=== PATIENT | male | born 1970 | race Caucasian/White ===

== ENCOUNTER 2019-08-08 17:43 | Inpatient (IN) | payer OTHER ==
--- NOTE | 2019-08-08 19:06 | ED ---
Psychiatric Complaint - HPI Summary HPI Summary: 48 y/o male presented to [facility] for psychiatric complaint related to a psychotic break from 20y ago. His past psychiatrist, Dr. Manjarrez, retired 1y ago. He now sees Dr. Caro. There is no official diagnosis for the pt, but psychiatrists who have seen him suspect bipolar disorder or psychosis. His states he has been manic since 2018, and that his personality has changed. He has become more verbally defiant. Pt notes hx of tinnitus and fhx of similar psychiatric issues in his mother. Pt was cleared for MHE at 1852. - History Of Current Complaint Chief Complaint: EDMentalHealth Time Seen by Provider: 08/08/19 18:28 Hx Obtained From: Patient Onset/Duration: Still Present Character: Manic Aggravating Factor(s): Nothing Alleviating Factor(s): Nothing Associated Signs And Symptoms: Positive: Hostile - combative, only verbally Related History: Positive For: Prior Psychiatric Issues - psychotic break 20y ago - Allergies/Home Medications Allergies/Adverse Reactions: Allergies Allergy/AdvReac Type Severity Reaction Status Date / Time budesonide [From Symbicort] Allergy Intermediate Agitation Verified 08/08/19 17: 48 formoterol [From Symbicort] Allergy Intermediate Agitation Verified 08/08/19 17: 48 Penicillins Allergy Unknown Rash Verified 08/08/19 17:48 PMH/Surg Hx/FS Hx/Imm Hx Endocrine/Hematology History: Denies: Hx Diabetes Cardiovascular History: Denies: Hx Pacemaker/ICD History: Denies: Hx Dialysis, Hx Renal Disease Sensory History: Denies: Hx Hearing Aid Psychiatric History: Denies: Hx Panic Disorder - Surgical History Surgery Procedure, Year, and Place: DENIES Infectious Disease History: No Infectious Disease History: Denies: Traveled Outside the [place] in Last 30 Days - Family History Known Family History: Positive: Other - similar psychiatric issues in mother - Social History Alcohol Use: Rare Substance Use Type: Reports: None Smoking Status (MU): Never Smoked Tobacco Review of Systems Negative: Fever - vitals show temp at 97.4F Positive: Other - manic All Other Systems Reviewed And Are Negative: Yes Physical Exam - Summary Physical Exam Summary: General: Well appearing, no distress HEENT: PERRL Cardiovascular: Skin is well perfused Pulmonary: No respiratory distress, no tachypnea Abdomen: Non-distended Skin: Warm, pink, dry MSK: No edema Psych: tangential, hyperverbal, poor eye contact Neuro: A&Ox3 Triage Information Reviewed: Yes Vital Signs On Initial Exam: Initial Vitals Temp Pulse Resp BP Pulse Ox 97.4 F 77 19 174/94 100 08/08/19 17:43 08/08/19 17:43 08/08/19 17:43 08/08/19 17:43 08/08/19 17:43 Vital Signs Reviewed: Yes Procedures - Sedation Patient Received Moderate/Deep Sedation with Procedure: No Diagnostics - Vital Signs Vital Signs Temp Pulse Resp BP Pulse Ox 08/08/19 17:47 97.8 F 77 19 174/94 99 08/08/19 17:43 97.4 F 77 19 174/94 100 - Laboratory Result Diagrams: 08/08/19 21:07 08/08/19 21:07 Lab Statement: Any lab studies that have been ordered have been reviewed, and results considered in the medical decision making process. Course/Dx - Course Course Of Treatment: 48 y/o male w hx psychosis p/w manic behavior and paranoia. - VSS NAD. Patient without medical complaints. Patient initially declining labs. Placed in gown on constant observation. - Differential Dx/Clinical Impression Provider Diagnosis: Unspecified psychosis - Physician Notifications Discussed Care Of Patient With: Murphy Samson Time Discussed With Above Provider: 21:31 Instructed by Provider To: Other - After MHE, Dr. Samson decided to admit the pt. Discharge ED - Sign-Out/Discharge Documenting (check all that apply): Patient Departure - admit - Discharge Plan Condition: Stable Disposition: ADMITTED TO [facility] Referrals: Cristine Coburn MD [Primary Care Provider] - - Billing Disposition and Condition Condition: STABLE Disposition: Admitted to [facility] - Attestation Statements Document Initiated by Scribe: Yes Documenting Scribe: Yo Ball Provider For Whom Dave is Documenting (Include Credential): Saloni Lima Scribe Attestation: Yo Fernandez, scribed for Saloni Lima on 08/08/19 at 2253. Scribe Documentation Reviewed: Yes Provider Attestation: The documentation as recorded by the Yo mars accurately reflects the service I personally performed and the decisions made by me, Saloni Lima Status of Scribe Document: Viewed
[2019-08-08 20:58] LABS: Urine Appearance Clear; Urine Bilirubin Negative (Negative); Urine Blood Negative (Negative); Urine Color Yellow; Urine Glucose Negative (Negative); Urine Ketones Negative (Negative); Urine Nitrite Negative (Negative); Urine Protein Negative (Negative); Urine Specific Gravity 1.017 (1.010-1.030); Urine Urobilinogen Negative (Negative)
[2019-08-08 21:12] LABS: ABS Lymphocytes 1.6 10^3/ul (1.0-4.8); ABS Monocytes 0.5 10^3/ul (0-0.8); Eosinophil % 0.1 %; Hematocrit 47 % (42-52); Hemoglobin 16.1 g/dL (14.0-18.0); Lymphocyte % 14.1 %; Mean Corpuscular HGB Conc 34 g/dL (31-36); Mean Corpuscular Hemoglobin 31 pg (27-31); Mean Corpuscular Volume 92 fL (80-94); Platelet Count 239 10^3/uL (150-450); Red Blood Count 5.13 10^6 /uL (4.18-5.48); Red Cell Distribution Width 14 % (10-15); White Blood Count 11.1 10^3/uL (3.5-10.8)
[2019-08-08 21:12] LABS: Urine Benzodiazepine Screen None Detected (None Detect); Urine Opiates Screen None Detected (None Detect)
[2019-08-08 21:22] LABS: Albumin 4.8 g/dL (3.2-5.2); Anion Gap 8 mmol/L (2-11); CO2 Carbon Dioxide 25 mmol/L (22-32); Calcium 9.6 mg/dL (8.6-10.3); Chloride 106 mmol/L (101-111); Potassium 3.5 mmol/L (3.5-5.0); Sodium 139 mmol/L (135-145)
[2019-08-08 21:28] LABS: ALT 17 U/L (7-52); AST 25 U/L (13-39); Albumin/Globulin Ratio 1.7 (1-3); Alkaline Phosphatase 59 U/L (34-104); BUN/Creatinine Ratio 16.2 (8-20); Blood Urea Nitrogen 12 mg/dL (6-24); EGFR African American 137.2 (>60); EGFR Non-African American 113.4 (>60); Globulin 2.8 g/dL (2-4); Glucose 120 mg/dL (70-100); Total Protein 7.6 g/dL (6.4-8.9)
[2019-08-08 21:38] LABS: Acetaminophen < 15 mcg/mL; Alcohol < 10 mg/dL (<10); Salicylate < 2.50 mg/dL (<30)
[2019-08-08 22:04] LABS: HIV 4th Generation Nonreactive (Nonreactive)
[2019-08-08 22:09] LABS: TSH (Thyroid Stimulating Horm) 1.55 mcIU/mL (0.34-5.60)
[2019-08-08] MEDS ORDERED: LORazepam TAB(*) 1 MG ONE (23:53)
[2019-08-08] MEDS ORDERED: risperiDONE TAB* 1 MG ONE (23:53)
[2019-08-09] MEDS ORDERED: Acetaminophen TAB* 325 MG PO PRN (00:12)
[2019-08-09] MEDS ORDERED: Al Hydrox/Mg Hydrox/Simet LIQ* 30 ML UDC PO PRN (00:12)
[2019-08-09] MEDS ORDERED: risperiDONE TAB* 1 MG PO ONE (00:30)
[2019-08-09] MEDS ORDERED: LORazepam TAB(*) 1 MG PO ONE (00:30)
[2019-08-09] MEDS ORDERED: OLANzapine TAB*ODT* 10 MG TAB ONE (08:29)
[2019-08-09] MEDS: Vitamin THERAPEUTIC TAB PO SCH (09:37)
[2019-08-09] MEDS ORDERED: LORazepam TAB(*) 1 MG ONE (10:27)
[2019-08-09] MEDS ORDERED: LORazepam TAB(*) 0.5 MG PO ONE (10:27)
[2019-08-09] MEDS ORDERED: chlorproMAZINE TAB* 100 MG PO PRN (10:29)
--- NOTE | 2019-08-09 10:43 | PROCNOTE ---
- Assessment for Patient Restraint Face to Face Encounter Date: 08/09/19 Face to Face Encounter Time: 09:00 Evaluation of the Patient's Immediate Situation: Patient received zyprexa 10mg IM he was first offered oral form and refused. The patient was a danger to others and becoming combative. Patient's Reaction to Intervention: Patient is refused oral zyprexa and a hands on approach was required to administer 10mg IM zyprexa. Patient is not in any acute distress and no injury occurred as a result Patient's Medication and Behavioral Condition: Patient received 10mg Zyprexa IM, the patient remains disorganized and is currently on constant observation, patient is able to be redirected without the need for restraint. Patient was seen and evaluated at (0900am) within a half hour of the time the restraint occurred (0855am) Evaluate Need for Continued Restraint: Terminate
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
[2019-08-09] MEDS: Valproic Acid CAP(*) 250 MG PO SCH ×2 (10:52→21:48)
[2019-08-09] MEDS ORDERED: LORazepam INJ* 2 MG/ML 1 ML VIAL IM ONE (16:10)
[2019-08-09] MEDS ORDERED: Lorazepam PYXIS KEY PRN (16:10)
[2019-08-09] MEDS ORDERED: Haloperidol INJ IV/IM* 5 MG/ML AMP IM ONE (16:11)
[2019-08-09] MEDS ORDERED: diPHENhydraMINE IV* 50 MG/ML 1 ml VIAL (BENADRYL) ONE (16:12)
[2019-08-09] MEDS ORDERED: Haloperidol INJ IV/IM* 5 MG/ML AMP ONE (16:12)
[2019-08-09] MEDS ORDERED: diPHENhydraMINE IV* 50 MG/ML 1 ml VIAL (BENADRYL) IM ONE (16:13)
--- NOTE | 2019-08-09 16:39 | PROCNOTE ---
- Assessment for Patient Restraint Face to Face Encounter Date: 08/09/19 Face to Face Encounter Time: 04:30 Evaluation of the Patient's Immediate Situation: Patient offered oral first and refused received Haldol 5mg IM Ativan 2mg IM and Benadryl 50mg IM The patient was a danger to himself and banging his head on the floor others and becoming combative. Patient's Reaction to Intervention: Patient is refused oral medications and a hands on approach was required to administer Haldol 5mg IM Ativan 2mg IM and Benadryl 50mg IM . Patient is not in any acute distress and no injury occurred as a result and resting in bed comfortably Patient's Medication and Behavioral Condition: Patient is resting in room without the need for continued restraint. Patient was seen and evaluated at (0430pm) within a half hour of the time the restraint occurred (0420pm) Evaluate Need for Continued Restraint: Terminate
[2019-08-09] MEDS ORDERED: OLANzapine TAB*ODT* 10 MG TAB PO SCH (21:00)
--- NOTE | 2019-08-10 07:57 | PN ---
Subjective - Subjective Date of Service: 08/10/19 Service Type: [id number] Hosp care 35 min high complexity Subjective: Nursing Report: Patient has shown remarkable improvement in behavioral control, he shows interest in medication treatments and is planing to get EKG and CT today. Patient has not been a behavioral issue this morning and is medication compliant. Objective - General Observations Appearance: Neat Appears Stated Age: Yes Stature: Thin Posture: WNL Eye Contact: Average Behavior/Activity: Peculiar - Interaction Observations Attitude Towards Examiner: Cooperative Stated Mood: Expansive Affect: Full Speech Pattern/Tone: Excessive Thought Process: Coherent, Goal Directed Perception: WNL Thought Content: WNL Hallucination Type: None Delusion Type: None - Cognitive Function Orientation: A&O x 4 Level of Consciousness: Awake - Medication Compliance Cooperative with Inpatient Medication Regimen: Yes - Group Participation Participates in Group Activities: No Assessment - Assessment Merits Inpatient Hospitalization: For Immediate Safety Clinical Impression: 48 year old Male with history of Bipolar disorder presented with overt symptoms of psychosis and showing good treatment response towards stabilization. Plan - Plan Treatment Plan: Name: CATA KUMAR Birthdate: 1970 [id number] #Q15 minute observation # The patient requires psychiatric inpatient admission at this time to assure safety, receive treatment and work toward stabilization. #EKG ordered for risk of QT prolongation of antipsychotic medication. # To obtain collateral information from his . # Continue valproic acid 500mg BID and discontinue zyprexa # Start Seroquel 400mg qhs # Collaboration with Melt House Drag Operator Deborah Smith # CT Brain #Goals before discharge include: Psychiatric stabilization Tentative Discharge: Pending psychiatric stabilization Continued Medication Management: Continue Outpt Medication Medications: Current Medications Acetaminophen (Tylenol Tab*) 650 mg PO Q4H PRN PRN Reason: PAIN or TEMP > 101 F Al Hydrox/Mg Hydrox/Simethicone (Maalox Plus*) 30 ml PO Q4H PRN PRN Reason: INDIGESTION Chlorpromazine HCl (Thorazine Tab*) 100 mg PO Q6H PRN PRN Reason: AGITATION Miscellaneous (Ativan Pyxis Mueller) 1 ea N/A .ATIVAN IV MUELLER PRN PRN Reason: PYXIS MUELLER Multivitamins (Theragran Tab*) 1 tab PO DAILY [facility]ANC[facility] Last Admin: 08/09/19 09:37 Dose: Not Given Olanzapine (Zyprexa *Odt*) 10 mg PO BEDTIME [facility] Last Admin: 08/09/19 21:48 Dose: Not Given Valproic Acid (Depakene Cap(*)) 500 mg PO BID [facility] Last Admin: 08/09/19 21:48 Dose: Not Given - Discharge Plan Discharge Plan: Inpatient Hospitalization
[2019-08-10] MEDS: Vitamin THERAPEUTIC TAB PO SCH (13:48)
[2019-08-10] MEDS: Valproic Acid CAP(*) 250 MG PO SCH ×2 (13:48→21:08)
[2019-08-10] MEDS ORDERED: QUEtiapine TAB* 100 MG PO SCH (21:00)
[2019-08-11] MEDS: Vitamin THERAPEUTIC TAB PO SCH (09:37)
[2019-08-11] MEDS: Valproic Acid CAP(*) 250 MG PO SCH ×2 (09:37→21:35)
[2019-08-11 11:27] LABS: RPR Nonreactive (Nonreactive)
--- NOTE | 2019-08-11 12:39 | PN ---
Subjective - Subjective Date of Service: 08/11/19 Service Type: [id number] Hosp care 35 min high complexity Subjective: Nursing Report: Patient was visible on unit, no behavioral incidents. refused PM medications CC: " I do not think I have a mental illness" Patient was seen and evaluated today. The patient reported he feels that him and his need separation because she wants him to take medications. The patient said he doesnt have bipolar disorder and doesnt need medication. He was unable to appreciate the risk of a psychosis occurring again if he stops taking medication. Patient is requesting discharge. Patient declined MMPI Objective - General Observations Appearance: Disheveled Appears Stated Age: Yes Stature: Thin Posture: WNL Eye Contact: Avoidant Behavior/Activity: Peculiar - Interaction Observations Attitude Towards Examiner: Confused, Defensive, Evasive Stated Mood: Elevated, Anxious Affect: Restricted Speech Pattern/Tone: Normal Volume Thought Process: Loose Associations Perception: Depersonalization Thought Content: Paranoid Thought Process: Lethality: Paranoid Ideation Hallucination Type: Denies Delusion Type: Persecution - Cognitive Function Orientation: A&O x 4 Level of Consciousness: Awake Insight: Difficulty Acknowledging Presence of Psyciatric Problems Judgment Within Normal Limits: No - Medication Compliance Cooperative with Inpatient Medication Regimen: No - Group Participation Participates in Group Activities: No Assessment - Assessment Merits Inpatient Hospitalization: For Immediate Safety Clinical Impression: 48 year old Male with history of Bipolar disorder presented with overt symptoms of psychosis and showing good treatment response towards stabilization. Plan - Plan Treatment Plan: Name: CATA KUMAR Birthdate: 1970 [id number] #Q15 minute observation # Patient showed great improvement after initiation of psychiatric medications however he is now refusing medications and is at great risk for another psychotic episode. # The patient requires psychiatric inpatient admission at this time to assure safety, receive treatment and work toward stabilization. #EKG ordered for risk of QT prolongation of antipsychotic medication. # To obtain collateral information from his . # Continue valproic acid 500mg BID and discontinue zyprexa # Start Invega 6mg qhs # Patient declined MMPI reasoning includes that he doesnt believe in it. # D/C Seroquel # Family meeting at 1pm with # Consider long acting injection due to intermittent medication compliance # Collaboration with Metal Burnisher Deborah Smith # CT Brain results normal #Goals before discharge include: Psychiatric stabilization Tentative Discharge: Pending psychiatric stabilization Continued Medication Management: Continue Outpt Medication Medications: Current Medications Acetaminophen (Tylenol Tab*) 650 mg PO Q4H PRN PRN Reason: PAIN or TEMP > 101 F Al Hydrox/Mg Hydrox/Simethicone (Maalox Plus*) 30 ml PO Q4H PRN PRN Reason: INDIGESTION Chlorpromazine HCl (Thorazine Tab*) 100 mg PO Q6H PRN PRN Reason: AGITATION Miscellaneous (Ativan Pyxis Mueller) 1 ea N/A .ATIVAN IV MUELLER PRN PRN Reason: PYXIS MUELLER Multivitamins (Theragran Tab*) 1 tab PO DAILY [facility] Last Admin: 08/11/19 09:37 Dose: Not Given Quetiapine Fumarate (Seroquel Tab*) 400 mg PO BEDTIME [facility] Last Admin: 08/10/19 21:08 Dose: Not Given Valproic Acid (Depakene Cap(*)) 500 mg PO BID [facility] Last Admin: 08/11/19 09:37 Dose: Not Given - Discharge Plan Discharge Plan: Inpatient Hospitalization
[2019-08-11] MEDS ORDERED: Paliperidone ER TAB* 6 MG TAB.ER PO SCH (18:00)
[2019-08-12] MEDS: Valproic Acid CAP(*) 250 MG PO SCH (09:00)
[2019-08-12] MEDS: Vitamin THERAPEUTIC TAB PO SCH (09:00)
--- NOTE | 2019-08-12 12:29 | PN ---
Subjective - Subjective Date of Service: 08/12/19 Service Type: [id number] Hosp care 35 min high complexity Subjective: Nursing Report: Patient was visible on unit, no behavioral incidents. Refusing medications, He is not attending group activities. CC: "I do not need medications" Patient was seen and evaluated today. The patient reported he does not need medications and would like to be discharged. The patient wrote out a list of how to make the hospital experience better. Met with the patient and his , and the patients expressed that he is a danger to himself and others when he doesnt take his medications. Patient said he needs more time to think about medications and might risk losing his marriage and children over not taking medications. At the end of the meeting he said he would try oral invega and which point he took. Patient said he does not like depakote and will think about taking lithium. Objective - General Observations Appearance: Unkempt Appears Stated Age: Yes Stature: Thin Posture: Slumped Eye Contact: Intense Behavior/Activity: Peculiar - Interaction Observations Attitude Towards Examiner: Cooperative Stated Mood: Expansive Affect: Restricted Speech Pattern/Tone: Normal Volume Thought Process: Coherent Perception: WNL Thought Content: Paranoid Thought Process: Lethality: Paranoid Ideation Hallucination Type: Denies Delusion Type: Denies - Cognitive Function Orientation: A&O x 4 Level of Consciousness: Awake - Medication Compliance Cooperative with Inpatient Medication Regimen: No - Group Participation Participates in Group Activities: No Assessment - Assessment Merits Inpatient Hospitalization: For Immediate Safety Clinical Impression: 48 year old Male with history of Bipolar disorder presented with overt symptoms of psychosis and received multiple emergency Anti psychotic medications on admission and showed good treatment response and moving towards stabilization, patient is medication non compliant. Plan - Plan Treatment Plan: Name: CATA KUMAR Birthdate: 1970 [id number] #Q30 minute observation with staff pass # Patient showed great improvement after initiation of psychiatric medications however he is now refusing medications and is at great risk for another psychotic episode. # The patient requires psychiatric inpatient admission at this time to assure safety, receive treatment and work toward stabilization. #EKG ordered for risk of QT prolongation of antipsychotic medication. # To obtain collateral information from his . # Continue Invega 6mg qhs # Patient requesting definitive ways to determine diagnosis however declined MMPI reasoning includes that he doesnt believe in it. # D/C Seroquel and depakote # Start lithium 300mg BID # Family meeting at 1pm with # Contact with previous provider Dr. Caro was made and she is unable to provide follow up care due to patients needs and non compliance # Consider long acting injection due to intermittent medication compliance # is concerned about her children and patients safety when he is not taking medications # Collaboration with Warehouse Team Leader Deborah Shippos # CT Brain results normal # + IgG Syphilis nonreactive RPR --> [facility] requested labs FTA and TPPA labs pending and results expected tomorrow. #Goals before discharge include: Psychiatric stabilization Tentative Discharge: Psychiatric stabilization Continued Medication Management: Continue Outpt Medication Medications: Current Medications Acetaminophen (Tylenol Tab*) 650 mg PO Q4H PRN PRN Reason: PAIN or TEMP > 101 F Al Hydrox/Mg Hydrox/Simethicone (Maalox Plus*) 30 ml PO Q4H PRN PRN Reason: INDIGESTION Chlorpromazine HCl (Thorazine Tab*) 100 mg PO Q6H PRN PRN Reason: AGITATION Miscellaneous (Ativan Pyxis Mueller) 1 ea N/A .ATIVAN IV MUELLER PRN PRN Reason: PYXIS MUELLER Multivitamins (Theragran Tab*) 1 tab PO DAILY [facility] Last Admin: 08/12/19 09:00 Dose: Not Given Paliperidone (Invega Er Tab*) 6 mg PO QPM [facility] Last Admin: 08/11/19 17:28 Dose: Not Given Valproic Acid (Depakene Cap(*)) 500 mg PO BID [facility] Last Admin: 08/12/19 09:00 Dose: Not Given - Discharge Plan Discharge Plan: Inpatient Hospitalization Outpatient Program: [facility]
[2019-08-12] MEDS: Paliperidone ER TAB* 6 MG TAB.ER PO SCH (13:35)
[2019-08-12] MEDS: Lithium Carbonate TAB* 300 MG PO SCH (21:41)
[2019-08-13 07:03] LABS: HDL Cholesterol 35.5 mg/dL
[2019-08-13] MEDS ORDERED: Paliperidone SUSTENNA* 234 MG/1.5 ML IM ONE (09:00)
[2019-08-13] MEDS: Lithium Carbonate TAB* 300 MG PO SCH ×2 (09:33→21:16)
[2019-08-13] MEDS: Vitamin THERAPEUTIC TAB PO SCH (09:33)
[2019-08-13] MEDS: Paliperidone ER TAB* 6 MG TAB.ER PO SCH (10:01)
--- NOTE | 2019-08-13 11:08 | PN ---
Subjective - Subjective Date of Service: 08/13/19 Service Type: 90698 Hosp care 35 min high complexity Subjective: Nursing Report: Patient was visible on unit, no behavioral incidents. Slept overnight. He is attending group activities. CC: "I want to take the treatment" Patient was seen and evaluated today. The patient reported he feels safe on the unit and expressed that after talking with his that he needs to take medications in order to be there for his family , he noted that he would like to continue to write. The patient reported that he now sees how medications help him. He is inspired to write about his experience. He vaguely recalls the experience he had when he was not taking his medications that included streaking in the hallways and charging into people. He reported having adequate appetite and sleep. The patient reports attending day groups. Per nursing no behavioral issues or overnight events reported. Patient reported that he is tolerating medications without side effects. Objective - General Observations Appearance: Neat Appears Stated Age: Yes Stature: WNL Posture: WNL Eye Contact: Average Behavior/Activity: WNL - Interaction Observations Attitude Towards Examiner: Cooperative Stated Mood: Euthymic Affect: Full Speech Pattern/Tone: Clear, Appropriate, Normal Volume Thought Process: Coherent Perception: WNL Thought Content: WNL Hallucination Type: None Delusion Type: None - Cognitive Function Orientation: A&O x 4 Level of Consciousness: Awake - Medication Compliance Cooperative with Inpatient Medication Regimen: Yes - Group Participation Participates in Group Activities: Partial Assessment - Assessment Clinical Impression: 48 year old Male with history of Bipolar disorder presented with overt symptoms of psychosis and received multiple emergency Anti psychotic medications on admission and showed good response to treatment. Plan - Plan Treatment Plan: Name: CATA KUMAR Birthdate: 1970 [id number] #Q30 minute observation with staff pass # Patient showed great improvement and rapid response after accepting lithium and Invega # The patient requires psychiatric inpatient admission at this time to assure safety, receive treatment and work toward stabilization. #EKG ordered for risk of QT prolongation of antipsychotic medication. # To obtain collateral information from his . # Discontinue oral Invega 6mg qhs # Continue lithium 300mg BID # [place] level Friday # Family meeting completed # Patient was explained the risks of invega with TD and increased breast tissue , and acknowledged that the benefits outweigh the risks. # Patient did not show any signs of TD movements. # Contact with previous provider Dr. Caro was made and she is unable to provide follow up care due to patients needs and non compliance # Patient received Invega 234mg IM without complications on 08/13/2019 and will receive 156mg IM on 08/16/2019 with 156mg next due on 09/10/2019 # Collaboration with Assistant County Attorney Deborah Smith # CT Brain results normal # + IgG Syphilis nonreactive RPR --> [facility] requested labs FTA and TPPA labs pending and results expected by today #Goals before discharge include: Psychiatric stabilization Tentative Discharge: Friday Continued Medication Management: Continue Outpt Medication Medications: Current Medications Acetaminophen (Tylenol Tab*) 650 mg PO Q4H PRN PRN Reason: PAIN or TEMP > 101 F Al Hydrox/Mg Hydrox/Simethicone (Maalox Plus*) 30 ml PO Q4H PRN PRN Reason: INDIGESTION Chlorpromazine HCl (Thorazine Tab*) 100 mg PO Q6H PRN PRN Reason: AGITATION [place] Carbonate ([place] Carbonate Tab*) 300 mg PO BID [facility] Last Admin: 08/13/19 09:33 Dose: 300 mg Miscellaneous (Ativan Pyxis Moreno) 1 ea N/A .ATIVAN IV MORENO PRN PRN Reason: PYXIS MORENO Multivitamins (Theragran Tab*) 1 tab PO DAILY [facility] Last Admin: 08/13/19 09:33 Dose: Not Given Paliperidone Palmitate (Invega Sustenna*) 156 mg IM ONCE ONE Stop: 08/16/19 09:01 - Discharge Plan Discharge Plan: Inpatient Hospitalization Outpatient Program: [facility]
--- NOTE | 2019-08-13 11:24 | PN ---
BSU: Group Therapy Note - Service Type Service Type: 39241 Group Psychotherapy - Cognitive Behavioral Group Therapy ( CBT):Patient was attentive and participatory in CBT programming this morning, and remained in good behavioral control. Patient expressed positive insights regarding relevant treatment interventions and goals.
[2019-08-13 16:15] LABS: T.Pallidum TP-PA Negative (Negative)
[2019-08-14] MEDS: Vitamin THERAPEUTIC TAB PO SCH (09:24)
[2019-08-14] MEDS: Lithium Carbonate TAB* 300 MG PO SCH ×2 (09:24→21:08)
[2019-08-15] MEDS: Lithium Carbonate TAB* 300 MG PO SCH ×2 (08:55→21:09)
[2019-08-15] MEDS: Vitamin THERAPEUTIC TAB PO SCH (08:55)
[2019-08-16] MEDS ORDERED: Paliperidone SUSTENNA* 156 MG/1 ML IM ONE (09:00)
[2019-08-16 09:03] VITALS: BP 100/64
[2019-08-16] MEDS: Vitamin THERAPEUTIC TAB PO SCH (09:49)
[2019-08-16] MEDS: Lithium Carbonate TAB* 300 MG PO SCH (09:49)
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
--- NOTE | 2019-08-16 11:24 | PN ---
BSU: Group Therapy Note - Service Type Service Type: [id number] Group Psychotherapy - Cognitive Behavioral Group Therapy ( CBT):Patient was attentive and participatory in CBT programming this morning, and remained in good behavioral control. Patient expressed positive insights regarding relevant treatment interventions and goals.
== END 2019-08-16 16:28 | disposition home or self-care (01) | DRG 885 ==
LOC: ED 17:43 → BSU 21:20
PROVIDERS: ADMIT Psychiatry & Neurology Psychiatry; ATTEND Psychiatry & Neurology Psychiatry
PROC: GZHZZZZ Group Psychotherapy (ICD-10-PCS; principal; 2019-08-13)
DX: F31.5 Bipolar disorder, current episode depressed, severe, with psychotic features (principal); Z62.810 Personal history of physical and sexual abuse in childhood; Z88.8 Allergy status to other drugs, medicaments and biological substances; Z88.0 Allergy status to penicillin; Z79.899 Other long term (current) drug therapy; Z78.1 Physical restraint status; Z91.14 Patient's other noncompliance with medication regimen
CPT/HCPCS: 36415; 70450; 80053; 80061; 80164; 80178; 80307; 80320; 80329; 81003; 82607; 83036; 84443; 85025; 86592; 86780; 87389; 90853; 93005; 99222; 99233; 99238; 99284; A9270-GY; G0480; J1200; J1630